=== PATIENT | male | born 1995 | race Two or more races ===

== ENCOUNTER 2021-04-20 05:16 | Emergency (ER) | payer SELFPAY ==
[2021-04-20 05:24] VITALS: BP 152/87
--- NOTE | 2021-04-21 10:32 | Electrocardiograph Report ---
[facility] Test Date: 2021-04-20 Test Time: 05:33:39 Pat Name: RADHA BABIN Department: Room: Gender: M Certified Maintenance Welder: LUTHER : 1995 Requested By: HUMPHREY PARNELL Order Number: [id number] Reading MD: Jacky Ma Measurements Intervals [place] Rate: 85 P: 53 PA: 141 QRS: 30 QRSD: 107 T: 0 QT: 362 QTc: 442 Interpretive Statements Marked sinus arrhythmia No previous ECG available for comparison Electronically Signed On 04-21-2021 10:32:12 EDT by Jacky Ma
== END 2021-04-20 06:32 | disposition left against medical advice (07) ==
LOC: ED 05:16
DX: R07.9 Chest pain, unspecified (principal); Z53.21 Procedure and treatment not carried out due to patient leaving prior to being seen by health care provider
CPT/HCPCS: 93005